=== PATIENT | female | born 1995 | race Caucasian/White ===

== ENCOUNTER 2016-11-26 09:37 | Emergency (ER) | payer OTHER ==
--- NOTE | 2016-11-26 10:13 | ED ---
General Adult HPI - General Chief complaint: Upper Respiratory Infection Stated complaint: cold symptoms Time Seen by Provider: 11/26/16 09:51 Source: patient, RN notes reviewed Mode of arrival: ambulatory Limitations: no limitations - History of Present Illness Initial comments: Patient is a 21-year-old female who presents emergency room today with a chief complaint of sore throat over the last 3 days. She does admit that she's had a sore throat when she swallows. He admits that she was running fever 3 days ago. States fever has broke. States mild cough no sputum production. Denies any other complaints. She states she was worried about possible strep throat did not want to give it to her daughter who is 10 months old at home. Patient denies any recent shortness of breath, chest pain, back pain, abdominal pain, nausea or vomiting, numbness or tingling, dysuria or hematuria, constipation or diarrhea, headaches or visual changes, or any other complaints. - Related Data Home Medications Medication Instructions Recorded Confirmed Sulfamethox-Tmp 800-160Mg [Bactrim 1 tab PO Q12H 11/26/16 11/26/16 DS 800-160 mg] Allergies Allergy/AdvReac Type Severity Reaction Status Date / Time Penicillins Allergy Rash/Hives Verified 11/26/16 10:13 Review of Systems ROS Statement: Those systems with pertinent positive or pertinent negative responses have been documented in the HPI. ROS Other: All systems not noted in ROS Statement are negative. Past Medical History Past Medical History: No Reported History History of Any Multi-Drug Resistant Organisms: None Reported Past Surgical History: No Surgical Hx Reported Additional Past Surgical History / Comment(s): D&C Past Anesthesia/Blood Transfusion Reactions: No Reported Reaction Past Psychological History: No Psychological Hx Reported Smoking Status: Current every day smoker Past Alcohol Use History: None Reported Past Drug Use History: None Reported General Exam - General Exam Comments Initial Comments: General: The patient is awake and alert, in no distress, and does not appear acutely ill. Eye: Pupils are equal, round and reactive to light, extra-ocular movements are intact. No nystagmus. There is normal conjunctiva bilaterally. No signs of icterus. Ears, nose, mouth and throat: There are moist mucous membranes and no oral lesions. Neck: The neck is supple, there is no tenderness or JVD. Patient does have redness to the posterior pharynx. Uvula midline. Cardiovascular: There is a regular rate and rhythm. No murmur, rub or gallop is appreciated. Respiratory: Lungs are clear to auscultation, respirations are non-labored, breath sounds are equal. No wheezes, stridor, rales, or rhonchi. Musculoskeletal: Normal ROM, no tenderness. Strength 5/5. Sensation intact. Pulses equal bilaterally 2+. Neurological: A&O x 3. CN II-XII intact, There are no obvious motor or sensory deficits. Coordination appears grossly intact. Speech is normal. Skin: Skin is warm and dry and no rashes or lesions are noted. Psychiatric: Cooperative, appropriate mood & affect, normal judgment. Limitations: no limitations General appearance: alert, in no apparent distress Head exam: Present: atraumatic, normocephalic, normal inspection Eye exam: Present: normal appearance, PERRL, EOMI. Absent: scleral icterus, conjunctival injection, periorbital swelling ENT exam: Present: normal exam, mucous membranes moist Neck exam: Present: normal inspection. Absent: tenderness, meningismus, lymphadenopathy Respiratory exam: Present: normal lung sounds bilaterally. Absent: respiratory distress, wheezes, rales, rhonchi, stridor Cardiovascular Exam: Present: regular rate, normal rhythm, normal heart sounds. Absent: systolic murmur, diastolic murmur, rubs, gallop, clicks GI/Abdominal exam: Present: soft, normal bowel sounds. Absent: distended, tenderness, guarding, rebound, rigid Extremities exam: Present: normal inspection, full ROM, normal capillary refill. Absent: tenderness, pedal edema, joint swelling, calf tenderness Back exam: Present: normal inspection Neurological exam: Present: alert, oriented X3, CN II-XII intact Psychiatric exam: Present: normal affect, normal mood Skin exam: Present: warm, dry, intact, normal color. Absent: rash Course Vital Signs 11/26/16 09:44 Temperature 97.8 F Pulse Rate 95 Respiratory 18 Rate Blood Pressure 101/56 O2 Sat by Pulse 99 Oximetry Medical Decision Making - Medical Decision Making Patient's strep test negative. Patient will be discharged home. Advised most likely viral illness. Advised continue Tylenol Motrin as needed. Advised over- the-counter medications. Advised return for any other concerns. - Lab Data Lab Results 01/30/17 Range/Units 10:11 Group A Strep Rapid Negative (Negative) Disposition Clinical Impression: Acute pharyngitis Disposition: HOME SELF-CARE Condition: Good Instructions: Pharyngitis (ED) Additional Instructions: Please use medication as discussed. Please follow-up with family doctor in the next 2 days of symptoms have not improved. Please return to emergency room if the symptoms increase or worsen or for any other concerns. Time of Disposition: 10:57
[2016-11-26 11:01] VITALS: RESP 16
[2016-11-26 11:08] VITALS: BP 106/61; PULSE 74; TEMP 97.8
== END 2016-11-26 11:01 | disposition home or self-care (01) ==
LOC: EC 09:37
DX: J02.9 Acute pharyngitis, unspecified (principal); F17.200 Nicotine dependence, unspecified, uncomplicated; Z88.0 Allergy status to penicillin
CPT/HCPCS: 87081; 87430; 99283

== ENCOUNTER → 2017-09-18 | Outpatient (CLI) | payer OTHER ==
--- NOTE | 2017-09-18 18:02 | US ---
EXAMINATION TYPE: US OB <=14 wks transvag DATE OF EXAM: 09/18/2017 COMPARISON: NONE CLINICAL HISTORY: Z36 Confirm Dates. Spotting earlier in , no bleeding or pain now EXAM PERFORMED: OBTA/TV EXAM MEASUREMENTS: GESTATIONAL AGE / DATING Physician Established: (10 weeks/3 days) EDC: 04/13/2018 Dates by LMP: (10 weeks/3 days) EDC: 04/13/2018 Dates by First Scan: No previous this is first scan Dates by Current Scan for: No IUP seen at this time MATERNAL ANATOMY Uterus: 9.0 x 4.6 x 4.0cm Right Ovary: 3.1 x 3.0 x 1.9cm Left Ovary: 4.1 x 2.9 x 2.1cm, complex lesion on left ovary = 1.7cm Post CDS / Adnexa: wnl Presence of free fluid: no Presence of corpus luteal cyst: no Presence of subchorionic bleed: no GESTATION / SURVEY No IUP seen at this time Endo = 1.2cm Date of LMP: 07/07/2007 Beta HcG (if available): called office for results of lab work done yesterday and they said beta was negative IMPRESSION: Normal transabdominal and transvaginal pelvic sonogram. No evidence of a . A gestational sac is not seen and the possibility of early ectopic cannot be excluded.
== END | disposition home or self-care (01) ==
LOC: RADUSWWP 16:10
PROVIDERS: ATTEND Obstetrics & Gynecology
DX: Z36.89 Encounter for other specified antenatal screening (principal)
CPT/HCPCS: 76801; 76817

== ENCOUNTER → 2018-09-05 | Outpatient (CLI) | payer OTHER | END | disposition home or self-care (01) | LOC: LABWHC1 11:22 | PROVIDERS: ATTEND Obstetrics & Gynecology | DX: Z34.90 Encounter for supervision of normal pregnancy, unspecified, unspecified trimester (principal); Z3A.00 Weeks of gestation of pregnancy not specified | CPT/HCPCS: 36415; 84702 ==

== ENCOUNTER → 2019-03-31 | Outpatient (CLI) | payer OTHER ==
[2019-03-31 17:36] LABS: HCT 40.2 % (34.0-46.0); HGB 13.4 gm/dL (11.4-16.0); MCH 30.8 pg (25.0-35.0); MCHC 33.4 g/dL (31.0-37.0); MCV 92.1 fL (80.0-100.0); Mean Platelet Volume 7.5; Platelet Count 345 k/uL (150-450); RBC 4.37 m/uL (3.80-5.40); RDW 13.1 % (11.5-15.5); WBC 8.8 k/uL (3.8-10.6)
== END | disposition home or self-care (01) ==
LOC: LABWHC1 16:26
PROVIDERS: ATTEND Obstetrics & Gynecology
DX: Z34.81 Encounter for supervision of other normal pregnancy, first trimester (principal)
CPT/HCPCS: 36415; 82565; 82947; 85027; 86762; 86780; 86850; 86900; 86901; 87340

== ENCOUNTER → 2019-04-13 | Outpatient (CLI) | payer OTHER ==
--- NOTE | 2019-04-13 22:27 | US ---
EXAMINATION TYPE: Transabdominal DATE OF EXAM: 04/13/2019 4:28 PM COMPARISON: NONE CLINICAL HISTORY: Z36 Confirm Dates and viability. EXAM PERFORMED: Transabdominal (TA) EXAM MEASUREMENTS: GESTATIONAL AGE / DATING Physician Established: Not yet established Dates by LMP: (7 weeks/1 days) EDC: 11/29/2019 Dates by First Scan: No previous this is first scan Dates by Current Scan for: (7 weeks/1 days) EDC: 11/29/2019 MATERNAL ANATOMY Uterus: 9.6 x 4.4 x 6.2 cm Right Ovary: 3.1 x 2.0 x 2.4 cm Left Ovary: 1.7 x 0.9 x 1.2 cm Post CDS / Adnexa: wnl Presence of free fluid: No Presence of corpus luteal cyst: No Presence of subchorionic bleed: Yes, to the left of the gestational sac measuring 1.2 x 0.7 x 0.6 cm GESTATION / SURVEY CRL: 1.0 cm (7 weeks/1 days) Yolk Sac (normal less than 6mm): 2 mm Heart Rate: 132 bpm Rhythm: Normal IUP: Viable IUP Date of LMP: Unsure Beta HcG (if available): Not available at this time Single live intrauterine gestation is confirmed as gestational sac, yolk sac, and pole are pres ent. No free fluid in pelvic cul-de-sac. Adjacent to gestational sac there is small fluid collection could reflect implantation bleed measuring 1.2 x 0.6 x 0.7 cm. Both ovaries are present. No suspicious extra ovarian adnexal lesions are seen bilaterally. IMPRESSION: Single live intrauterine gestation is confirmed, mean crown-rump length is 1.0 cm corresp onding to 7 week 1 day old fetus.
== END | disposition home or self-care (01) ==
LOC: RADUSWWP 16:00
PROVIDERS: ATTEND Obstetrics & Gynecology
DX: Z36.9 Encounter for antenatal screening, unspecified (principal); Z3A.01 Less than 8 weeks gestation of pregnancy
CPT/HCPCS: 76801